=== PATIENT | male | born 1940 | race Caucasian/White ===

== ENCOUNTER 2017-02-10 02:28 | Emergency (ER) | payer OTHER ==
[~2017-02-10] VITALS: Ht 170.2 cm; Wt 95.7 kg
[~2017-02-10 02:28] MED LIST: ALLOPURINOL300 MG PO; AMLODIPINE10 MG PO; BUFFERIN LOW DO81 MG PO; CO-Q-10 200 MG-1 SGL PO; COUMADIN5 M2 PO; PERCOCET 5-3251 EACH PO; RITE AID BIO2500 MCG PO; SIMVASTATIN20 MG PO; TRIAMTERENE/HCT1 CAP PO; VITAB121000 PO; VITAMIN D32000 I1 PO; ZOLPIDEM TART5 MG PO
[2017-02-10 02:55] LABS: ABSOLUTE BASOPHIL COUNT 0 /CUMM (0.0-0.2); ABSOLUTE EOSINOPHIL COUNT 0 /CUMM (0.0-0.7); ABSOLUTE GRANULOCYTE CT 10.2 /CUMM (1.4-6.5); ABSOLUTE LYMPH COUNT 0.4 /CUMM (1.2-3.4); ABSOLUTE MONOCYTE COUNT 0.4 /CUMM (0.10-0.60); BASOPHIL % 0.1 % (0.0-2.0); EOSINOPHIL % 0.2 % (0-5); GRANULOCYTE % 92.3 % (42.2-75.2); MEAN CORPUSCULAR HGB 30.4 PG (27.0-31.0); MEAN CORPUSCULAR HGB CONC 33.9 G/DL (33.0-37.0); MEAN CORPUSCULAR VOLUME 89.6 FL (80.0-94.0); MEAN PLATELET VOLUME 9.6 FL (7.4-10.4); PLATELET COUNT 232 /CUMM (130-400); RBC DISTRIBUTION WIDTH 13.6 % (11.5-14.5); RED BLOOD CELL CT 5.92 /CUMM (4.70-6.10); WHITE BLOOD CELL COUNT 11.1 /CUMM (4.8-10.8)
[2017-02-10 04:17] VITALS: BP 117/72
[2017-02-10] MEDS ORDERED: ZOFRAN ODT4 M1 SL (04:37)
--- NOTE | 2017-02-10 04:37 | ED GI/GU/ABDOMINAL COMPLAINT ---
History of Present Illness General Chief Complaint: Nausea, Vomiting, Diarrhea Stated Complaint: +N/V X 5 HOURS Source: patient, family Exam Limitations: no limitations Vital Signs & Intake/Output Vital Signs & Intake/Output Vital Signs Date Time Temp Pulse Resp B/P B/P Pulse O2 O2 Flow FiO2 Mean Ox Delivery Rate 02/10 0417 97.5 105 20 117/72 98 Room Air 02/10 0237 99.8 122 20 136/76 97 Room Air Allergies Coded Allergies: morphine (N/V 02/10/17) Reconcile Medications Allopurinol 300 MG TAB 1 TAB PO DAILY GOUT (Reported) Amlodipine Besylate (Amlodipine) 10 MG TAB 1 TAB PO DAILY BP (Reported) Aspirin (Children's Aspirin) 81 MG TAB 1 TAB PO DAILY SUPPLEMENT (Reported) Biotin ([facility] Biotin) 2,500 MCG CAP 5,000 MCG PO DAILY SUPPLEMENT ( Reported) CHOLECALCIFEROL (VITAMIN D3) (Vitamin D-3) 2,000 IU SGL 4,000 IU PO DAILY SUPPLEMENT (Reported) Coenzyme Q10/Vitamin E (Co-Q-10 200 MG-1 Iu) 1 SGL SGL 1 SGL PO DAILY SUPPLEMENT (Reported) Cyanocobalamin (Vitamin B-12) 1,000 MCG TAB 1 TAB PO DAILY SUPPLEMENT ( Reported) Oxycodone HCl/Acetaminophen (Percocet 5-325 MG Tablet) 1 EACH TABLET 1-2 TAB PO Q4P PRN PAIN Simvastatin (Zocor) 20 MG TAB 1 TAB PO DAILY CHOLESTEROL (Reported) TRIAMTERENE/HYDROCHLOROTHIAZID (Triamterene-Hctz 37.5-25 MG Cp) 1 CAP CAP 1 CAP PO DAILY BP (Reported) Warfarin Sodium (Coumadin) 5 MG TABLET 1 TAB PO DAILY ANTICOAGULATION Zolpidem Tartrate 5 MG TAB 0.5 TAB PO QPM SLEEP (Reported) Triage Note: TRIAGE: PATIENT TO ER FROM HOME REPORTING +N/V X 5 HOURS, "EVERY HOUR ON THE HOUR." DENIES AND ABD PAIN/ DIARRHEA. REPORTS "THINK MAYBE I ATE SOMETHING BAD." DENIES SOB/ CP. Triage Nurses Notes Reviewed? yes HPI: Patient presents for evaluation of sudden onset of severe severe nausea and vomiting that lasted for about 5 hours that began this evening. He states that he tried to go to sleep but couldn't due to nausea. He was unable to tolerate even water prior to coming to the emergency department. He denies any associated fever, cold symptoms, diarrhea, travel, known ill contacts, chest pain or dyspnea. There is been no blood in his vomitus or diarrhea. He states he may eaten some bad chicken as a potential cause for his current symptoms. Other than feeling a little bloated currently he feels well. Past History Travel History Traveled to [place] past 21 day No Medical History Any Pertinent Medical History? see below for history Cardiovascular: hypertension, hyperlipidemia Gastrointestinal: diverticulitis, hiatal hernia Musculoskeletal: osteoarthritis History of MRSA: No History of VRE: No History of CDIFF: No Pneumonia Vaccine: 11/09/10 Surgical History Surgical History: knee replacement (Right) Psychosocial History Who do you live with Spouse What is your primary language Cook Islander Tobacco Use: Quit >30 days ago ETOH Use: occasional use Illicit Drug Use: denies illicit drug use Family History Hx Contributory? No Review of Systems Review of Systems Constitutional: Reports: no symptoms. EENTM: Reports: no symptoms. Respiratory: Reports: no symptoms. Cardiovascular: Reports: no symptoms. GI: Reports: see HPI. Genitourinary: Reports: no symptoms. Musculoskeletal: Reports: no symptoms. Skin: Reports: no symptoms. Neurological/Psychological: Reports: no symptoms. Hematologic/Endocrine: Reports: no symptoms. Immunologic/Allergic: Reports: no symptoms. All Other Systems: Reviewed and Negative Physical Exam Physical Exam Gastrointestinal: see below Comments: Gen.: Well-nourished, well-developed, no acute respiratory distress. Head: Normocephalic, atraumatic. Eyes: Normal inspection bilaterally Ears: Normal inspection bilaterally Nose: Normal inspection Throat/mouth : Moist mucosa Neck: Supple, full range of motion, no goiter Heart: Regular rate and rhythm, no murmurs rubs or gallops Lungs: Clear to auscultation bilaterally with normal air entry Chest: Nontender Back: Normal range of motion Abdomen: Soft, nontender, nondistended, normal bowel sounds Extremities: Normal range of motion grossly, equal radial pulses, no cyanosis clubbing or edema Neurologic: Cranial nerves grossly intact, speech is clear Skin: warm and dry Psychiatric: Calm, cooperative, no apparent delusions or hallucinations Core Measures ACS in differential dx? No Sepsis Present: No Sepsis Focused Exam Completed? No Progress Differential Diagnosis: gastroenteritis, food poisoning Plan of Care: Orders Procedure Date/time Status TROPONIN LEVEL 01/02 0243 Complete LIPASE 02/10 242 Complete COMPREHENSIVE METABOLIC PANEL 02/10 242 Complete CBC WITHOUT DIFFERENTIAL 02/10 242 Complete AMYLASE 02/10 242 Complete Laboratory Tests 02/10/17 0246: Anion Gap 18 H, Estimated GFR 50 L, BUN/Creatinine Ratio 20.7, Glucose 165 H, Calcium 10.2, Total Bilirubin 1.4 H, AST 43, ALT 62, Alkaline Phosphatase 91, Troponin I < 0.01, Total Protein 8.2, Albumin 4.9, Globulin 3.3, Albumin/ Globulin Ratio 1.5, Amylase 78, Lipase 210, CBC w Diff MAN DIFF ORDERED, RBC 5.92, MCV 89.6, MCH 30.4, RDW 13.6, MPV 9.6, Gran % 92.3 H, Lymphocytes % 3.4 L, Monocytes % 4.0, Eosinophils % 0.2, Basophils % 0.1, Absolute Granulocytes 10.2 H, Segmented Neutrophils 84 H, Band Neutrophils 1, Absolute Lymphocytes 0.4 L, Lymphocytes 7 L, Monocytes 7, Absolute Monocytes 0.4, Eosinophils 1, Absolute Eosinophils 0, Absolute Basophils 0, Platelet Estimate ADEQUATE, Normocytic RBCs VERIFIED, Normochromic RBCs VERIFIED, PUBS MCHC 33.9, Fld Total RBCs Counted 100 Initial ED EKG: none Comments: 02/10/2017 4:33:22 AM Dat as tolerated water here in the emergency department and feels better. He states his nausea and vomiting have abated. He feels well at this time. Departure Departure Disposition: HOME OR SELF CARE Condition: Stable Clinical Impression Primary Impression: Food poisoning Qualifiers: Encounter type: initial encounter Injury intent: accidental or unintentional Qualified Code: T62.91XA - Toxic effect of unspecified noxious substance eaten as food, accidental (unintentional), initial encounter Referrals: Mathew RYAN,[place] (PCP/Family) Additional Instructions: Zofran as needed for nausea or vomiting. Clear liquids including Gatorade or Powerade and advance your diet as tolerated. Follow-up with your primary care physician if not improved over the next 48-72 hours. Return if any concerns or sudden worsening. Thank you for choosing the [facility] for your care. It was a pleasure to serve you today. Anant Roberson M.D. [facility] Departure Forms: Customer Survey General Discharge Information
== END 2017-02-10 04:45 ==
LOC: ERH 02:28
PROVIDERS: Emergency Medicine
DX: T62.91XA Toxic effect of unspecified noxious substance eaten as food, accidental (unintentional), initial encounter (principal)

== ENCOUNTER 2017-05-25 04:01 | Inpatient (IN) | payer OTHER ==
[~2017-05-25] VITALS: Ht 162.6 cm; Wt 98.0 kg
[~2017-05-25 04:01] MED LIST changes: +ALLOPURINOL300 M1 PO; +AMLODIPINE BESY10 M1 PO; +ASPIRIN81 M4 PO; +BIOTIN2500 MCG; +BIOTIN5000 MCG; +CO Q-1010 M1; +TRIAMTERENE-HC1 EAC3 PO; +VITAMIN B-121000 MC3 PO; +VITAMIN D3400 UNI1 PO; +ZOCOR20 M1; +ZOFRAN ODT4 M1 SL
--- NOTE | 2017-05-25 17:12 | PN- Student ---
RamiroRadames 05/25/17 1705: Subjective Subjective: PT FEELS WELL POST-OP. DENIES PAIN, ABLE TO TOLERATE ICE CHIPS. GERARD IN PLACE. HAS NOT BEEN OOB SINCE PROCEDURE. DENIES CP, SOB, HEADACHE, DIZZINESS, FEVER, CHILLS, N/V. REMAINS IN PACU, AWAITING BED ASIGNMENT UPSTAIRS Objective Objective: VITALS AND I/O NOT YET RECORDED (REFER TO PAPER PACU CHART) GENERAL: RESTING COMFORTABLY, NAD, ACTIVELY PARTICIPATED IN EXAM, A&Ox3 CARDIAC: REGULAR RHYTHM, NORMAL RATE, SYSTOLIC EJECTION MURMUR PRESENT, NO RUBS OR GALLOPS PULM: CTAB, NO ACCESSORY MUSCLE USAGE, 2L NASAL CANNULA ON SINCE PROCEDURE LOWER EXTREMITIES: NOT EDEMATOUS OR ERYTHEMATOUS B/L, CALVES SOFT, NONTENDER DRESSING C/D/I, ON-Q PUMP IN PLACE, ALPS IN PLACE B/L, GROSS MOTOR AND SENSORY FUNCTION INTACT B/L, 2+PT PULSE ON RIGHT, +DP PULSE LEFT Assessment/Plan Assessment: 76 Y/O MALE, PMH OF HTN, MITRAL REGURG, HLD, AORTIC DILATION, AND GOUT, POD#0 S/ P LEFT TOTAL KNEE REVISION. RECOVERING WELL POST-OP, PAIN WELL CONTROLLED, TOLERATED ICE CHIPS WELL. AWAITING PT EVAL. Plan: CONTINUE CURRENT PAIN CONTROL WBAT DIET: REGULAR PPX: MONIKA MANNING, OOB. GI REGIMENT IN PLACE GERARD OUT IN AM F/U AM LABS PT EVAL IN AM RESTART HOME MEDICATIONS Kalyn Tello 05/25/17 5139: Assessment/Plan Assessment: Patient seen with student. Agree w above.
[2017-05-25 18:22] VITALS: BP 110/62
--- NOTE | 2017-05-25 18:57 | Patient Discharge Instructions ---
Discharge Instructions General Discharge Information You were seen/treated for: pain related to tibial component of previous L TKR You had these procedures: Revision (tibial component) left total knee replacement Watch for these problems: Increasing pain despite the use of pain medication Increasing redness, warmth or swelling Drainage of any type from incision Inability to bear weight on operative leg Persistent nausea and vomiting Fever greater than 101.5 degrees Other wound care: Please keep wound clean and dry. No ointments or lotions of any type on or near incision. Your dressing will be changed by your nurse on the second day after your surgery. Daily dry dressing changes are recommended each day thereafter. You may shower 48hr after surgery. Do not soak your wound- no tub baths or swimming. Diet Continue normal diet: Yes Activity Activity Limited to: Weight bear as tolerated Additional ACTIVITY Info: Use assistive devices as needed Acute Coronary Syndrome Inclusion Criteria At DC or during hospital stay patient has or had the following: ACS DIAGNOSIS No Discharge Core Measures Meds if any: Prescribed or Continued at Discharge Meds if any: NOT Prescribed or Continued at Discharge Congestive Heart Failure Inclusion Criteria At DC or during hospital stay patient has or had the following: CHF DIAGNOSIS No Discharge Core Measures Meds if any: Prescribed or Continued at Discharge Meds if any: NOT Prescribed or Continued at Discharge Cerebrovascular accident Inclusion Criteria At DC or during hospital stay patient has or had the following: CVA/TIA Diagnosis No Discharge Core Measures Meds if any: Prescribed or Continued at Discharge Meds if any: NOT Prescribed or Continued at Discharge Venous thromboembolism Inclusion Criteria VTE Diagnosis No VTE Type NONE VTE Confirmed by (Test) NONE Discharge Core Measures - Per Current guidelines, there needs to be overlap - treatment for the first 5 days of Warfarin therapy. - If discharged on Warfarin prior to 5 days of - overlap therapy, the patient will need to be - assessed for post discharge needs including - *Post discharge parental anticoagulation - *Warfarin and/or parental anticoagulation education - *Follow up date to check INR post discharge At least 5 days overlap therapy as Inpatient No Meds if any: Prescribed or Continued at Discharge Note: Overlap Therapy is Warfarin and Anticoagulant Meds if any: NOT Prescribed or Continued at Discharge
--- NOTE | 2017-05-25 18:58 | Admission Core Measures ---
Acute Coronary Syndrome (CM) ACS Core Measures Acute Coronary Syndrome Diagnosis No Congestive Heart Failure (NEW) CHF Core Measures Congestive Heart Failure Diagnosis No Cerebrovascular Accident (NEW) CVA Core Measures CVA/TIA Diagnosis No Venous Thromboembolism VTE Core [place] (View Protocol) VTE Risk Factors Surgery No Mechanical VTE Prophylaxis d/t N/A MechProphylax Ordered No VTE Pharm Prophylaxis d/t NA PharmProphylax ordered Problem List As ranked by this Provider includes Assessment & Plan 1. Primary osteoarthritis of left knee HOME MEDS Home Med List Allopurinol 300 MG TABLET 1 TAB PO DAILY GOUT PREVENTION (Reported) Amlodipine Besylate 10 MG TABLET 1 TAB PO DAILY HTN (Reported) Aspirin (Aspirin*) 81 MG TAB.CHEW 1 TAB PO DAILY CARDIAC (Reported) Cholecalciferol (Vitamin D3) (Vitamin D3) 400 UNIT TABLET 10 TAB PO DAILY supp (Reported) Cyanocobalamin (Vitamin B-12) 1,000 MCG TABLET 1 TAB PO DAILY SUPPLEMENT ( Reported) Triamterene/Hydrochlorothiazid (Triamterene-Hctz 37.5-25 MG Cp) 37.5 MG-25 MG CAPSULE 1 CAP PO DAILY HTN (Reported)
--- NOTE | 2017-05-25 19:01 | Surgical Discharge Summary ---
Visit Information Visit Dates Admission Date: 05/25/17 Discharge Date: 05/27/17 History of Present Illness Chief Complaint: Left knee pain Medical History Cardiovascular: hypertension, hyperlipidemia Gastrointestinal: diverticulitis, hiatal hernia Musculoskeletal: osteoarthritis History of MRSA: No History of VRE: No History of CDIFF: No Isolation History: Standard Influenza Vaccine: 12/23/16 Surgical History Pertinent Surgical History: knee replacement (Right) Psychosocial History Where Do You Live? Home Who Do You Live With? Spouse Services at Home: None What is Your Primary Language? Belgian Review of Systems: See H&P Hospital Course Course Attending Physician: Chandana RYAN,[facility] Primary Care Physician: Mathew RYAN,[facility] Course: Patient was admitted to the hospital for elective revision to left total knee replacement. Procedure was tolerated well and patient was transferred to a general surgical floor. Diet was advanced and tolerated. Physical therapy performed evaluation and treatment. At time of hospital discharge, vital signs were stable, neurovascular status was intact, and pain was controlled with the use of oral pain medications. 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 Call to confirm/schedule appointment
[2017-05-25 20:00] VITALS: BP 140/60
[2017-05-25 22:00] VITALS: BP 122/54
[2017-05-25 23:53] VITALS: BP 118/56
[2017-05-26 01:55] VITALS: BP 116/62
[2017-05-26 06:00] VITALS: BP 124/68
--- NOTE | 2017-05-26 08:47 | PN- Student ---
Radames Rubio 05/26/17 0837: Subjective Subjective: patient feeling well post-op. pain rated at 1/10. oob multiple times, ambulated and did exercised with PT without pain. dax taken out this am, has not voided yet. tolerated normal diet without n/v. continues to use supplemental O2 with 2L NC, but does not feel out of breath. denies CP, fever, chills, headache, and dizziness Objective Objective: Vital Signs Date Time Temp Pulse Resp B/P B/P Pulse O2 O2 Flow FiO2 Mean Ox Delivery Rate 05/26 0600 98.3 75 18 124/68 92 Nasal Cannula 05/26 0155 98.1 77 20 116/62 91 Nasal Cannula 05/26 0000 94 Nasal 2.0L Cannula 05/25 2353 98.6 83 18 118/56 94 Nasal Cannula 05/25 2200 98.8 79 18 122/54 93 Nasal Cannula 05/25 2000 99.2 83 20 140/60 92 Nasal Cannula 05/25 1822 98.9 85 18 110/62 94 Nasal 2.0L Cannula 05/25 1815 Nasal 2.0L Cannula Intake & Output 05/26 1600 05/26 0800 05/26 0000 Intake Total 765 425 Output Total 950 450 Balance -185 -25 Intake, IV 525 225 Intake, Oral 240 200 Output, Urine 950 450 Patient 216 lb 216 lb Weight Weight Bed scale Measurement Method General: working with PT in room, NAD, actively participated in exam Cardiac: regular rhythm, normal rate, systolic murmur, no rubs or gallops pulm: CTAB, no accessory muscle usage, NC on 2L lower extremities: no edema or erythema, LLE dressing C/D/I, on-Q pump in place, incision minimally ttp, gross motor and sensory function intact, 2+ DP bilaterally Results Results: Laboratory Tests 05/26/17 0640: Sodium Pending, Potassium Pending, Chloride Pending, Carbon Dioxide Pending, Anion Gap Pending, BUN Pending, Creatinine Pending, BUN/Creatinine Ratio Pending , CBC w Diff Pending, WBC Pending, RBC Pending, Hgb Pending, Hct Pending, MCV Pending, MCH Pending, MCHC Pending, RDW Pending, Plt Count Pending, MPV Pending Microbiology 05/25 1340 EXTREMITIE: Gross Specimen Examination - RES 05/25 1340 EXTREMITIE: Gram Stain - RES 05/25 1300 BODY FLUID: Body Fluid Culture - RES 05/25 1300 BODY FLUID: Gram Stain - RES 05/25 1235 URINE ROUT: Urine Culture - RES Assessment/Plan Assessment: 76 y/o male, PMH of HTN, HLD, mitral regurg, gout, POD#1 s/p L TKR revision. patient recovering well post-op, pain well controlled, progressing with PT as expected, tolerating diet, due to void s/p verduzco removal, still requires supplemental O2. Plan: continue current pain management diet: regular wbat ppx: elequis, oob, GI regiment in place monitor for void s/p verduzco removal down titrate O2 as tolerated dressing change POD#2 f/u labs Rebecca Elizondo 05/26/17 0901: Objective Results Results: Laboratory Tests 05/26/17 0640: Sodium Pending, Potassium Pending, Chloride Pending, Carbon Dioxide Pending, Anion Gap Pending, BUN Pending, Creatinine Pending, BUN/Creatinine Ratio Pending , CBC w Diff Pending, WBC Pending, RBC Pending, Hgb Pending, Hct Pending, MCV Pending, MCH Pending, MCHC Pending, RDW Pending, Plt Count Pending, MPV Pending Microbiology 05/26 1339 EXTREMITIE: Gross Specimen Examination - RES 05/26 1339 EXTREMITIE: Gram Stain - RES 05/25 1300 BODY FLUID: Body Fluid Culture - RES 05/25 1300 BODY FLUID: Gram Stain - RES 05/25 1235 URINE ROUT: Urine Culture - RES Assessment/Plan Assessment: ADDENDUM; PT WITH MINIMAL PAIN, FELLING WELL, AMBULATING. DENIES CP/SOB. NO PARESTHESIAS DRESSING CLEAN AND DRY, DISTAL SENSORY AND MOTOR FUNCTION INTACT, 2+DP PULSE 76YO M POD#1 s/p L TKR revision OF TIBIAL COMPONENT. STABLE DC VERDUZCO AND IVF PT-WBAT CONT ONQ UNTIL TOMORROW DC O2, AND SEE HOW PT DOES, WAS 93% WHILE AMBULATING AND ASYMPTOMATIC ELIQUIS FOR DVT PPX
[2017-05-26 09:32] LABS: ABSOLUTE BASOPHIL COUNT 0 /CUMM (0.0-0.2); ABSOLUTE EOSINOPHIL COUNT 0 /CUMM (0.0-0.7); ABSOLUTE GRANULOCYTE CT 10.8 /CUMM (1.4-6.5); ABSOLUTE LYMPH COUNT 0.8 /CUMM (1.2-3.4); ABSOLUTE MONOCYTE COUNT 0.6 /CUMM (0.10-0.60); BASOPHIL % 0 % (0.0-2.0); EOSINOPHIL % 0 % (0-5); HEMATOCRIT 40.2 % (42-52); MEAN CORPUSCULAR HGB 30.6 PG (27.0-31.0); MEAN CORPUSCULAR HGB CONC 34.2 G/DL (33.0-37.0); MEAN CORPUSCULAR VOLUME 89.6 FL (80.0-94.0); MEAN PLATELET VOLUME 11.6 FL (7.4-10.4); PLATELET COUNT 137 /CUMM (130-400); RBC DISTRIBUTION WIDTH 13.5 % (11.5-14.5); RED BLOOD CELL CT 4.48 /CUMM (4.70-6.10); WHITE BLOOD CELL COUNT 12.1 /CUMM (4.8-10.8)
[2017-05-26 10:12] VITALS: BP 122/60
[2017-05-26 10:39] LABS: GRANULOCYTE % 88.9 % (42.2-75.2)
[2017-05-26 13:44] VITALS: BP 132/58
[2017-05-26 19:11] VITALS: BP 140/70
--- NOTE | 2017-05-26 19:15 | Operative Report ---
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 Post-Operative Diagnosis: Same with final pathology/microbiology pending Estimated Blood Loss: less than 50ml Surgeon/Supervisor Blood Donor Recruiters: Chandana RYAN,Israel Parada Anesthesia: general endotracheal tube Implants: [place] triathlon revision total knee system-size 6 tibia with a 4 offset, 100 x 15 mm stem Drains: None Specimens: Tibial component, cement debridement, tibial bone, membrane under tibial component Microbiology: Membrane under tibial component and synovial fluid and urine Tourniquet: 98 minutes Complications: None Condition: Stable Operative Indication: Patient is a 76-year-old man who had a total knee arthroplasty several years ago by Dr. Vidales. Patient had gradually increasing left knee pain and the workup included x-ray and bone scan. These tests revealed possible loosening of the left tibial component of the left total knee arthroplasty. Patient was referred to nd for further evaluation and treatment. Activities of daily living were compromised due to the left knee pain. He wished to proceed with total knee arthroplasty/tibial component after risks, benefits and expectations were discussed which included but were not limited to persistent knee pain, need for subsequent surgery, infection, DVT, injury to blood vessel or nerve. Also, he understood there might be a possibility that the entire total knee arthroplasty would need to be removed depending on intraoperative findings. Even though he had benign lab tests and exam, if we found findings consistent with infection, then total knee arthroplasty be removed and cement spacer applied with future reimplantation of total knee arthroplasty. Patient wished to proceed with surgical procedure. Operative/Procedure Note Note: Patient was brought to the operating room and transferred to the operating table. Once under appropriate anesthesia the left lower extremity was prepped and draped in standard fashion. Preoperative IV antibiotics were given prophylactically. A standard anterior incision was made through the previous incision. The incision was taken down sharply to the underlying retinaculum. A medial retinacular approach was used to enter the knee joint. Specimen of the synovial fluid was sent from this part of the procedure. Synovial fluid appeared to be clear. The specimen was sent as a stat evaluation and we would wait for the results before proceeding with implantation. The extensor mechanism was very tight as would be expected with revision surgery. Medial dissection was taken around the tibia and laterally as well. The knee was flexed and the patella was subluxed retractors were placed. The polyethylene component was then removed including the locking wire of the PCL substituting component. No evidence of damage to the femoral surface. There was clear that the tibial component was very loose. There was no evidence of loosening of the femoral component. Care was taken to gradually exposed the tibia and to try to sublux it forward of the femoral component in order to remove it. The cement mantle was cracked with osteotomes underneath the tibial component. And gradual manipulation was done to mobilize the tibia. Despite all these mobilization efforts, the tibia could not be subluxed forward of the femur until we did a small quadriceps snip. This allowed protection of the patellar insertion site to minimize risk of avulsion and allowed us to sublux the tibia forward. With this accomplished, the tibial component came out easily. Remaining soft tissue debridement and soft tissue membrane was sent for stat Gram stain and culture. Cement fragments were removed. Retractors were placed to protect medial and lateral structures. I then used the canal finder to insert into the tibial shaft. This was followed by serial reamers up to a size 15. This allowed for good purchase of the last reamer. I then proceeded to pin the cutting block in position for a freshening cut of the proximal tibia. A very small amount of bone was removed. I was satisfied with the surface. I then reamed the proximal part of the tibia to a size 16 since this is the minimum size 4 insertion of the box of the tibial component. I determine the offset using the offset guide. I then used the tibial punch of the appropriate size and completed this. I facilitated the tibial punch by using the saw since patient did have significantly sclerotic bone and I wanted to minimize risk of fracturing the tibia with insertion of the tibial punch. Once this was completed I finished the tibial punch portion of the case and then removed all trial components. Copious irrigation of the knee followed. Cement was being mixed on the back table. Vancomycin was added to the cement due to the fact that this was a revision surgery. After copious irrigation was completed. This tibial surface was dried and prepared for the cement technique. Cement was applied to the dry clean bony surfaces of the tibia. The tibial component with the 100 mm stem was impacted in place with the appropriate rotation that was determined previously and which was marked with the tibial punch fins. Excess cement was removed with curettes. I then placed a trial polyethylene in place and took the knee out to full extension. Once the cement was ready and hardened, I took the knee through range of motion. I was satisfied with the full extension of the knee. No mid flexion instability with a size 16 polyethylene. I chose a PCL substituting component. The TS component was not necessary. The tibial tray was copiously irrigated. I made sure there was no remaining soft tissue, bone fragments or cement fragments within the tibial tray. The definitive polyethylene insert 16 mm PS was impacted in place and the locking mechanism was confirmed. Copious irrigation the knee followed. Tourniquet was deflated. Hemostasis was obtained. I then repaired the quadriceps snip in 2 layers. The medial retinacular incision was closed with interrupted #1 Vicryl sutures. Subcutaneous tissues closed in 2 layers with 2-0 Vicryl and skin was closed with a running 3-0 Vicryl suture with the knee in flexion. Appropriate dressings were applied and patient was awakened and taken the recovery room in good condition. No intraoperative complications. Discharge Disposition: PACU
--- NOTE | 2017-05-26 19:18 | PN- Orthopedic ---
Surgical Brief Attending Note Brief Attending Note: Patient comfortable working with PT this morning. No complaints. He is able to flex beyond 90. He extends actively to -10. Calf is soft and nontender. Neuro intact. Dressings clean and dry. Status post left total knee arthroplasty tibial revision patient doing well. PT /rehabilitation Anticoagulation
[2017-05-26 22:05] VITALS: BP 136/70
[2017-05-27 06:37] VITALS: BP 138/68
--- NOTE | 2017-05-27 09:06 | PN- Orthopedic ---
Subjective Subjective: feeling well, some pain at knee. up with pt this am, cleared for hhs. no n/v/ cp/sob. Objective Vital Signs and I&Os Vital Signs Date Time Temp Pulse Resp B/P B/P Pulse O2 O2 Flow FiO2 Mean Ox Delivery Rate 05/27 0637 99.3 85 20 138/68 92 Room Air 05/26 2205 98.8 76 20 136/70 92 Room Air 05/26 1911 98.9 82 20 140/70 92 Room Air 05/26 1344 97.6 70 20 132/58 92 Room Air 05/26 1012 99.2 80 20 122/60 91 Room Air Intake & Output 05/27 1600 05/27 0800 05/27 0000 05/26 1600 05/26 0800 05/26 0000 Intake Total 360 800 765 425 Output Total 584 739 3322 950 450 Balance -360 260 -300 -185 -25 Intake, IV 525 225 Intake, Oral 360 800 240 200 Number 3 Bowel Movements Output, Urine 495 488 5288 950 450 Patient 216 lb 216 lb Weight Weight Bed scale Measurement Method Physical Exam: gen- nad card-s1s2 rrr pulm- ctab abd- soft nt ext-lle dressed- varinder taken down. incision w edema, no erythema, blood stained steris, ttp. palp dp. gross motor/sensate intact. calves soft nt bl. Assessment/Plan Assessment/Plan A- POD2 sp revision L TKR, stable for dc with home services. P- prn po pain meds eliquis 2.5 bid home meds oob, pt, wbat i&Os dc planning Core Measures Venous Thromboembolism VTE Risk Factors Surgery No Mechanical VTE Prophylaxis d/t N/A MechProphylax Ordered No VTE Pharm Prophylaxis d/t NA PharmProphylax ordered
[2017-05-27] MEDS ORDERED: DOCUSATE SODIU100 M3 PO (09:14)
[2017-05-27] MEDS ORDERED: ELIQUIS2.5 M1 PO (09:14)
[2017-05-27] MEDS ORDERED: PERCOCET 5-3251 EACH PO (09:14)
[2017-05-27 10:14] VITALS: BP 140/58
--- NOTE | 2017-05-27 12:29 | RADIOLOGY REPORT ---
EXAMINATION: XR KNEE, LEFT CLINICAL INFORMATION: Status post left total knee tibial component revision. COMPARISON: Left knee films dated 07/14/2015. TECHNIQUE: Two views of the left knee. FINDINGS: The patient is status post total left hip arthroplasty. The tibial component has been revised with a longer stem prosthesis now seen in place. This appears anatomically aligned and well seated within the hughes bone. No hardware failure or hughes bone fracture is seen. Prepatellar soft tissue swelling is seen. IMPRESSION: Anatomic alignment status post long stem tibial component revision.
== END 2017-05-27 11:07 | disposition home health service (06) | DRG 468 ==
LOC: 2NA 04:01 → SDA 04:01 → ENRESERV 16:46 → ENTRNSPT 17:22 → EDTRNSPTSTS 17:41 → EDTRNSPT 17:41 → 2NA 17:56 → CMPTRNSPT 18:10 → ENPENDDIS 05-27 09:23 → 2NA 05-27 11:07
PROVIDERS: Physician Assistant Surgical
PROC: 3E0T3BZ Introduction of Anesthetic Agent into Peripheral Nerves and Plexi, Percutaneous Approach (ICD-10-PCS; principal; 2017-05-25)
PROC: 0SPD0JZ Removal of Synthetic Substitute from Left Knee Joint, Open Approach (ICD-10-PCS; principal; 2017-05-25)
PROC: 0SRD0J9 Replacement of Left Knee Joint with Synthetic Substitute, Cemented, Open Approach (ICD-10-PCS; principal; 2017-05-25)
DX: T84.033A Mechanical loosening of internal left knee prosthetic joint, initial encounter (principal); I34.0 Nonrheumatic mitral (valve) insufficiency; E78.5 Hyperlipidemia, unspecified; H26.9 Unspecified cataract; I10 Essential (primary) hypertension; K44.9 Diaphragmatic hernia without obstruction or gangrene; M17.12 Unilateral primary osteoarthritis, left knee; Z96.651 Presence of right artificial knee joint; Z96.611 Presence of right artificial shoulder joint; Z79.82 Long term (current) use of aspirin
CPT/HCPCS: 2NASP; 87070; 87075; 36592; 73560-LT; 82436; 87086; 97110-GO; 97116-GO; 97161-GP; C1713; EXP; J0131; J0171; J1100; J1885; J2795; J3370; J7040